=== PATIENT | male | born 1970 | race Caucasian/White ===

== ENCOUNTER 2021-11-02 12:54 | Outpatient (REF) | payer MEDICARE, MEDICAID, SELFPAY ==
[2021-11-02 14:16] LABS: C Reactive Protein 0.06 mg/dL (< or = 0.50)
[2021-11-02 14:37] LABS: Erythrocyte Sedimentation Rate 26 MM/HR (0-15)
== END 2021-11-02 12:55 | disposition home or self-care (01) ==
LOC: HO.LAB 12:54
PROVIDERS: PCP Internal Medicine; Visit Provider Internal Medicine Rheumatology
DX: R51.9 Headache, unspecified (principal)
CPT/HCPCS: 36415; 85652; 86140

== ENCOUNTER → 2021-11-06 10:52 | Outpatient (BNVA) | payer MEDICARE, MEDICAID, SELFPAY | PROVIDERS: PCP Internal Medicine; Visit Provider Internal Medicine Rheumatology | DX: R51.9 Headache, unspecified (principal); I62.03 Nontraumatic chronic subdural hemorrhage; E11.42 Type 2 diabetes mellitus with diabetic polyneuropathy; E11.319 Type 2 diabetes mellitus with unspecified diabetic retinopathy without macular edema; R93.0 Abnormal findings on diagnostic imaging of skull and head, not elsewhere classified | CPT/HCPCS: 99202 ==

== ENCOUNTER 2021-11-08 11:24 | Outpatient (REF) | payer MEDICARE, MEDICAID, SELFPAY ==
[2021-11-08 12:45] LABS: Basophils Absolute Auto 0.1 X10*3/uL (0.0-0.2); Basophils Percent Auto 0.4 % (0-2); Eosinophils Absolute Auto 0.3 X10*3/uL (0.0-0.4); Eosinophils Percent Auto 1.5 % (0-4); Hematocrit 44.9 % (42.0-52.0); Hemoglobin 15.4 g/dl (14.0-18.0); Imm Gran Abs Auto 0.32 X10*3/uL (0.00-0.03); Imm Gran Pct Auto 1.9 % (0.0-0.4); Lymphocytes Absolute Auto 4.1 X10*3/uL (1.2-4.9); Lymphocytes Percent Auto 24.6 % (20-40); MANUAL DIFF FLAG SCAN; Mean Corpuscular HGB Conc 34.3 g/dl (31.0-36.0); Mean Corpuscular Hemoglobin 30.7 pg (27.0-33.0); Mean Corpuscular Volume 89.6 fL (80.0-98.0); Mean Platelet Volume 9.7 fL (9.4-12.4); Monocytes Absolute Auto 1.6 X10*3/uL (0.1-1.2); Monocytes Percent Auto 9.7 % (2-11); Neutrophils Absolute Auto 10.4 x10*3/uL (2.0-8.3); Neutrophils Percent Auto 61.9 % (45-73); Platelet Count 181 X10*3/uL (160-400); Red Blood Count 5.01 X10*6/uL (4.60-5.80); Red Cell Distribution Width 13.6 % (11.0-16.0); SCAN SMEAR FLAG 1; White Blood Count 16.8 X10*3/uL (4.8-10.8)
[2021-11-08 13:00] LABS: Anion Gap 18 (12-20); Blood Urea Nitrogen 24 mg/dL (9-16); Calcium 8.8 mg/dL (8.4-10.2); Carbon Dioxide 26 mmol/L (22-29); Chloride 98 mmol/L (96-108); Estimated Glomerular Filt Rate > 60; Glucose Random 188 mg/dL (60-115); Sodium 138 mmol/L (135-145)
[2021-11-08 13:33] LABS: SLIDE REVIEW VERIFIED
[2021-11-08 13:45] LABS: Erythrocyte Sedimentation Rate 38 MM/HR (0-15)
== END 2021-11-08 11:25 | disposition home or self-care (01) ==
LOC: HO.LAB 11:24
PROVIDERS: PCP Internal Medicine; Visit Provider Psychiatry & Neurology Neurology
DX: I62.03 Nontraumatic chronic subdural hemorrhage (principal)
CPT/HCPCS: 36415; 80048; 85025; 85652

== ENCOUNTER 2021-12-20 13:08 | Outpatient (REF) | payer MEDICARE, MEDICAID, SELFPAY ==
[2021-12-20 13:18] LABS: MANUAL DIFF FLAG NO
[2021-12-20 14:24] LABS: Basophils Absolute Auto 0.1 X10*3/uL (0.0-0.2); Basophils Percent Auto 0.6 % (0-2); Eosinophils Absolute Auto 0.3 X10*3/uL (0.0-0.4); Eosinophils Percent Auto 2.6 % (0-4); Hematocrit 38.8 % (42.0-52.0); Hemoglobin 13.2 g/dl (14.0-18.0); Imm Gran Abs Auto 0.06 X10*3/uL (0.00-0.03); Imm Gran Pct Auto 0.6 % (0.0-0.4); Lymphocytes Absolute Auto 2.7 X10*3/uL (1.2-4.9); Lymphocytes Percent Auto 25.1 % (20-40); Mean Corpuscular Hemoglobin 30.4 pg (27.0-33.0); Mean Corpuscular Volume 89.4 fL (80.0-98.0); Mean Platelet Volume 9.9 fL (9.4-12.4); Monocytes Absolute Auto 0.7 X10*3/uL (0.1-1.2); Monocytes Percent Auto 6.8 % (2-11); Neutrophils Absolute Auto 6.8 x10*3/uL (2.0-8.3); Neutrophils Percent Auto 64.3 % (45-73); Platelet Count 201 X10*3/uL (160-400); Red Blood Count 4.34 X10*6/uL (4.60-5.80); White Blood Count 10.5 X10*3/uL (4.8-10.8)
[2021-12-20 15:22] LABS: Erythrocyte Sedimentation Rate 85 MM/HR (0-15)
== END 2021-12-20 13:09 | disposition home or self-care (01) ==
LOC: HO.LAB 13:08
PROVIDERS: PCP Internal Medicine; Visit Provider Psychiatry & Neurology Neurology
DX: I62.03 Nontraumatic chronic subdural hemorrhage (principal); G44.209 Tension-type headache, unspecified, not intractable
CPT/HCPCS: 36415; 85025; 85652

== ENCOUNTER 2022-05-22 12:31 | Outpatient (REF) | payer MEDICARE, MEDICAID, SELFPAY ==
[2022-05-22 13:43] LABS: Anion Gap 12 (12-20); Blood Urea Nitrogen 12 mg/dL (9-16); Carbon Dioxide 29 mmol/L (22-29); Chloride 101 mmol/L (96-108); Estimated Glomerular Filt Rate > 60; Glucose Random 269 mg/dL (60-115); Potassium 4.3 mmol/L (3.3-5.1); Sodium 138 mmol/L (135-145)
[2022-05-24 23:03] LABS: Prot Elec - Albumin 3.6 g/dL (3.8-4.8); Prot Elec - Alpha1 0.4 g/dL (0.2-0.3); Prot Elec - Alpha2 1.1 g/dL (0.5-0.9); Prot Elec - Beta 1 0.3 g/dL (0.4-0.6); Prot Elec - Beta 2 0.3 g/dL (0.2-0.5); Prot Elec - Gamma 0.9 g/dL (0.8-1.7); Prot Elec - Total Protein 6.6 g/dL (6.1-8.1)
[2022-05-25 12:24] LABS: Calcium (PTHI) 9.4 mg/dL (8.6-10.3); PTHI 16 pg/mL (16-77)
== END 2022-05-22 12:32 | disposition home or self-care (01) ==
LOC: HO.LAB 12:31
PROVIDERS: PCP Internal Medicine; Visit Provider Internal Medicine Hypertension Specialist
DX: E11.29 Type 2 diabetes mellitus with other diabetic kidney complication (principal)
CPT/HCPCS: 36415; 80048; 83970; 84165

== ENCOUNTER 2022-05-23 10:58 | Outpatient (REF) | payer MEDICARE, MEDICAID, SELFPAY ==
[2022-05-23 11:45] LABS: Appearance Urine Clear; Color Urine Yellow; Glucose Urine UA >=1000 mg/dL (Negative); Leukocyte Esterase Urine Negative (Negative); Nitrite Urine Negative (Negative); Specific Gravity - Urine 1.025 (1.005-1.025); UMIC TRIGGER UACC YES; Urine Blood Trace (Negative); Urine Ketones Negative (Negative); Urine Protein 100 (2+) mg/dL (Neg-Trace)
[2022-05-23 11:52] LABS: Bacteria Urine None Seen (None Seen); Hyaline Casts Urine 0-2 /LPF (0-2); Squamous Epithelial Cell Urine 0-2 /HPF (0-2); WBC Urine 0-5 /HPF (0-5)
[2022-05-23 12:21] LABS: Creatinine Urine 84.54 mg/dL; Protein/Creatinine Ratio, Ur 0.84 (<0.2); Total Protein Urine Random 71 mg/dL (<12)
== END 2022-05-23 10:59 | disposition home or self-care (01) ==
LOC: HO.LNP 10:58
PROVIDERS: Visit Provider Internal Medicine Hypertension Specialist
DX: Z13.89 Encounter for screening for other disorder (principal)
CPT/HCPCS: 81001; 84156